=== PATIENT | female | born 1985 | race Two or more races ===

== ENCOUNTER 2020-07-10 09:43 | Day surgery (SDC) | payer SELFPAY ==
[2020-07-04 12:18] VITALS: BMI 25.8
[2020-07-10] MEDS ORDERED: fentaNYL CITRATE 250 MCG/5 ML VIAL ONE (10:41)
[2020-07-10] MEDS ORDERED: MIDAZOLAM HCL 2 MG/2 ML SINGLE DOSE VIAL ONE ×2 (10:41→18:17)
[2020-07-10] MEDS ORDERED: ONDANSETRON 4 MG/2 ML VIAL ONE (10:42)
[2020-07-10] MEDS ORDERED: KETOROLAC TROMETHAMINE 30 MG/1 ML VIAL ONE (10:42)
[2020-07-10] MEDS ORDERED: LIDOCAINE HCL/PF 2% SDV 5ML VIAL ONE ×3 (10:43→12:50)
[2020-07-10] MEDS ORDERED: EPINEPHrine/PF 1 MG/1 ML (1:1,000) AMPULE ONE ×2 (10:44→11:13)
[2020-07-10] MEDS ORDERED: BUPIVACAINE HCL/PF 0.25% (2.5MG/ML) 10 ML VIAL ONE (10:44)
[2020-07-10] MEDS ORDERED: BACITRACIN 15 GM TUBE TOPICAL OINTMENT ONE (10:45)
[2020-07-10] MEDS ORDERED: ROCURONIUM BROMIDE 50 MG/5 ML SYRINGE ONE ×3 (10:49→14:08)
[2020-07-10] MEDS ORDERED: BUPIVACAINE LIPOSOME/PF (EXPAREL) 266 MG/20 ML VIAL ONE (11:00)
[2020-07-10] MEDS ORDERED: oxyCODONE HCL 5 MG TABLET PO PRN ×3 (11:07→17:10)
[2020-07-10] MEDS ORDERED: ONDANSETRON 4 MG/2 ML VIAL IVPUSH PRN (11:07)
[2020-07-10] MEDS ORDERED: LIDOCAINE HCL 1%, 10 MG/ML (20ML VIAL) ONE (11:13)
[2020-07-10] MEDS ORDERED: PROPOFOL 20 ML ONE ×2 (11:14→12:09)
[2020-07-10] MEDS ORDERED: LACTATED RINGERS SOLUTION 1,000 ML IV SCH ×2 (11:15→17:15)
[2020-07-10] MEDS ORDERED: HEPARIN NA (PORCINE) 5,000 UNITS/ML 1ML VIAL ONE (11:44)
[2020-07-10] MEDS ORDERED: ceFAZolin SODIUM 1 GM VIAL ONE (12:25)
[2020-07-10] MEDS ORDERED: BUPIVACAINE HCL/PF 0.25% (2.5MG/ML) 10 ML VIAL IJ ONE (13:57)
[2020-07-10] MEDS ORDERED: BUPIVACAINE LIPOSOME/PF (EXPAREL) 266 MG/20 ML VIAL NR ONE (13:57)
[2020-07-10] MEDS ORDERED: HYDROmorphone HCL/PF 1 MG/ML VIAL ONE ×2 (15:33→18:10)
[2020-07-10] MEDS ORDERED: NITROGLYCERIN 2% OINTMENT - 1GM PACKET TD ONE ×3 (16:15→16:43)
[2020-07-10] MEDS ORDERED: BACITRACIN 15 GM TUBE TOPICAL OINTMENT TP ONE ×2 (16:18→16:43)
[2020-07-10] MEDS ORDERED: NEOSTIGMINE METHYLSULFATE 0.5 MG/1 ML - 10 ML MDV ONE (16:35)
[2020-07-10] MEDS ORDERED: morphine SULFATE 4 MG/ML VIAL IVPB PRN (16:38)
[2020-07-10] MEDS ORDERED: ONDANSETRON 4 MG/2 ML VIAL IVPB PRN (17:10)
[2020-07-10] MEDS: ACETAMINOPHEN 500 MG TABLET (FP) PO SCH ×2 (17:45→22:58)
[2020-07-10] MEDS ORDERED: ACETAMINOPHEN 500 MG TABLET (FP) ONE (17:47)
[2020-07-10] MEDS: HYDROmorphone HCL/PF 1 MG/ML VIAL ONE ×2 (17:56→18:01)
[2020-07-10] MEDS ORDERED: HYDROmorphone HCl 2 MG/ML VIAL IVPUSH ONE (18:04)
[2020-07-10] MEDS ORDERED: HYDROmorphone HCL CARPU-JECT 2 MG/1 ML DISP.SYRIN IVPUSH PRN (18:18)
[2020-07-10] MEDS ORDERED: MIDAZOLAM HCL 2 MG/2 ML SINGLE DOSE VIAL IVPUSH ONE (18:19)
[2020-07-10] MEDS: morphine SULFATE 4 MG/ML VIAL IVPUSH PRN (19:55)
[2020-07-10] MEDS: CEFAZOLIN 1 GM/D5W 1 GM/50 ML BAG IVPB SCH (21:05)
[2020-07-10] MEDS: HEPARIN NA (PORCINE) 5,000 UNITS/ML 1ML VIAL SQ SCH (22:58)
[2020-07-11] MEDS: morphine SULFATE 4 MG/ML VIAL IVPUSH PRN (02:14)
[2020-07-11] MEDS: CEFAZOLIN 1 GM/D5W 1 GM/50 ML BAG IVPB SCH ×2 (02:15→08:47)
[2020-07-11] MEDS: ACETAMINOPHEN 500 MG TABLET (FP) PO SCH ×2 (05:00→11:46)
[2020-07-11] MEDS ORDERED: HEPARIN NA (PORCINE) 5,000 UNITS/ML 1ML VIAL SQ SCH (08:00)
[2020-07-11 09:55] VITALS: BP 95/48; PULSE 83; TEMP 98.6
[2020-07-11] MEDS: HEPARIN NA (PORCINE) 5,000 UNITS/ML 1ML VIAL SQ SCH (11:45)
[2020-07-11] MEDS ORDERED: QUEtiapine FUMARATE 100 MG TABLET (FP) PO SCH (22:00)
[2020-07-11] MEDS ORDERED: QUEtiapine FUMARATE 200 MG TABLET PO SCH (22:29)
== END 2020-07-11 12:46 | disposition home or self-care (01) ==
LOC: FASU 09:43 → EDBD 11:45 → FM/S 17:10 → FASU 07-11 12:46
PROVIDERS: ATTEND Plastic Surgery
CPT/HCPCS: 84703; 88300-TC; 94760; J1644